=== PATIENT | female | born 1970 | race Caucasian/White ===

== ENCOUNTER 2021-02-12 18:31 | Emergency (ER) | payer OTHER ==
[~2021-02-12] VITALS: Ht 152.4 cm; Wt 53.1 kg
--- OUTSIDE RECORDS SUMMARY | 2021-02-12 18:32 | XMS ---
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 Jayden has no Care Guidelines for this patient. David VIS[facility] COUNT (12 MO.) [facility] T[facility] NOTE: Visits indicate total known visits. ED/C VISIT TRACKING (12 MO.) [facility] COMPLAINT: - LT EAR PROBLEM 02/11/2021 12:36 [facility] OR TYPE: Emergency COMPLAINT: - L EAR PAIN/DRAINING INPATIENT VISIT TRACKING (12 MO.) No inpatient visits to display in this time frame [email or web address]
[2021-02-12] MEDS ORDERED: ULTRAM50 MG PO (20:01)
[2021-02-12] MEDS ORDERED: AMOXICILLIN500 MG PO (20:01)
== END 2021-02-12 20:13 | disposition home or self-care (01) ==
LOC: ED 18:31
DX: H66.92 Otitis media, unspecified, left ear (principal); E11.9 Type 2 diabetes mellitus without complications; J44.9 Chronic obstructive pulmonary disease, unspecified; F17.200 Nicotine dependence, unspecified, uncomplicated; Z88.5 Allergy status to narcotic agent
CPT/HCPCS: 99282